=== PATIENT | female | born 1940 | race Caucasian/White ===

== ENCOUNTER 2017-10-06 09:04 | Day surgery (SDC) | payer MEDICARE, OTHER ==
[2017-10-06] MEDS ORDERED: PROPOFOL 60 ML (10:21)
== END 2017-10-06 16:04 | disposition home or self-care (01) ==
LOC: GIL 09:04
DX: R19.4 Change in bowel habit (principal); K29.50 Unspecified chronic gastritis without bleeding; K21.9 Gastro-esophageal reflux disease without esophagitis; D12.6 Benign neoplasm of colon, unspecified; K64.8 Other hemorrhoids; E03.9 Hypothyroidism, unspecified; E78.5 Hyperlipidemia, unspecified; E11.9 Type 2 diabetes mellitus without complications; I10 Essential (primary) hypertension
CPT/HCPCS: 43239; 82962; 88305; 88312